=== PATIENT | female | born 1980 | race African-American/Black ===

== ENCOUNTER → 2016-07-26 | Outpatient (CLI) | payer OTHER ==
--- NOTE | 2016-07-27 20:38 | US ---
Examination: Greater than 14 weeks transabdominal ultrasound with color Doppler and M-mode evaluatio n. HISTORY: FINDINGS: LMP is 03/10/2016 EVALUATION: Posterior placenta with a breech lie and grade 1. Visually amniotic fluid is withi n normal limits. Three-vessel cord is noted. Ventricles are within normal limits. Nuchal fold thickness is 2.1 mm. Four chamber heart is noted. Heart rate is 156 beats per minute. BIOMETRY AND GESTATIONAL AGE: Biparietal diameter 4.4 cm. The abdominal circumference measures 14.2 cm. The femoral length is 3.0 cm with head circumference of 16.6 cm. Gestational age is 19 weeks and 2 days. The expected date of delivery is approximately 12/18/2016. Fetus weight is 291 grams. Overall the fetus is within the 28th percentile. Other detail anatomy summarized into PACs sheet after the images. No anatomical anomalies. IMPRESSION: Single active IU with breech fetus. Posterior placenta with grade 1, no placenta previa. N o anomalies are seen. Amniotic fluid appears within normal limits.
== END ==
LOC: MW.US 13:53
PROVIDERS: ATTEND Advanced Practice Midwife
DX: Z34.81 Encounter for supervision of other normal pregnancy, first trimester (principal); Z3A.19 19 weeks gestation of pregnancy
CPT/HCPCS: 76805; 76805-26

== ENCOUNTER → 2016-08-30 | Outpatient (CLI) | payer OTHER | END | disposition home or self-care (01) | LOC: MW.CHOBGYN 14:19 | PROVIDERS: ATTEND Advanced Practice Midwife | DX: Z34.90 Encounter for supervision of normal pregnancy, unspecified, unspecified trimester (principal) | CPT/HCPCS: 36415; 82950 ==

== ENCOUNTER 2016-12-13 06:16 | Inpatient (IN) | payer SELFPAY ==
[~2016-12-13 06:16] MED LIST: Citric Acid/Sodium Citrate Solution 30 ML Cup PO SCH; Sodium Chloride 0.9% 10 ML Syringe FLUSH PRN; Sodium Chloride 0.9% 2.5 ML Syringe FLUSH PRN
[2016-12-13] MEDS ORDERED: ceFAZolin 2 GM in Premix Bag 1 BAG IV ONE (06:22)
[2016-12-13] MEDS ORDERED: Sodium Chloride 0.9% 10 ML Syringe FLUSH PRN (06:22)
[2016-12-13] MEDS ORDERED: Sodium Chloride 0.9% 2.5 ML Syringe FLUSH PRN (06:22)
[2016-12-13] MEDS ORDERED: Citric Acid/Sodium Citrate Solution 30 ML Cup PO SCH (06:30)
[2016-12-13] MEDS ORDERED: Lactated Ringers 1,000 ML IV SCH ×2 (06:30→09:00)
[2016-12-13] MEDS ORDERED: Morphine PF 10 MG/10 ML SDV ONE (07:22)
[2016-12-13] MEDS ORDERED: Oxytocin/Lactated Ringers 30 UNIT/500 ML BAG ONE (07:25)
[2016-12-13] MEDS: Lactated Ringers 1,000 ML IV SCH ×2 (07:29→07:52)
[2016-12-13] MEDS ORDERED: Octyl 2-Cyanoacrylate 1 Tube ONE (07:43)
--- NOTE | 2016-12-13 07:58 | PCM.LDHP ---
L&D History of Present Illness - General Date of Service: 12/13/16 Admit Problem/Dx: Patient Status Order with Admit Dx/Problem 12/12/16 08:50 Patient Status [ADT] Routine 12/13/16 06:22 Patient Status [ADT] Routine Admission Diagnosis/Problem Admission Diagnosis/Problem Source of Information: Patient History Limitations: Reports: No Limitations - History of Present Illness Improves with: Reports: None Worsens with: Reports: None Associated Symptoms: Reports: N - Related Data Allergies/Adverse Reactions: Allergies Allergy/AdvReac Type Severity Reaction Status Date / Time No Known Allergies Allergy Verified 10/25/15 14:32 Home Medications: Home Meds . 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 Musculoskeletal History: Reports: None Hematologic History: Reports: Blood Transfusion(s) Other Hematologic History: states she had blood transfusion with first c /section - Past Surgical History Head Surgeries/Procedures: Reports: None HEENT Surgical History: Reports: None GI Surgical History: Reports: Appendectomy Female Surgical History: Reports: Section Social & Family History - Family History HEENT: Reports: Cataract - Tobacco Use Smoking Status *Q: Never Smoker Second Hand Smoke Exposure: No - Caffeine Use Caffeine Use: Reports: None - Alcohol Use Days Per Week of Alcohol Use: 0 - Recreational Drug Use Recreational Drug Use: No H&P Review of Systems - Review of Systems: Review Of Systems: See Below General: Reports: No Symptoms HEENT: Reports: No Symptoms Pulmonary: Reports: No Symptoms Cardiovascular: Reports: No Symptoms Gastrointestinal: Reports: No Symptoms Genitourinary: Reports: No Symptoms Musculoskeletal: Reports: No Symptoms Skin: Reports: No Symptoms Psychiatric: Reports: No Symptoms Neurological: Reports: No Symptoms Hematologic/Lymphatic: Reports: No Symptoms Immunologic: Reports: No Symptoms L&D Exam - Exam Exam: See Below - Vital Signs Weight: 79.832 kg - OB Specific Fundal Height In cm: 38 Contraction Intensity: Mild Heart Tones: Present Presentation: Vertex - Tolentino Score Tolentino Score Cervix Position: Midposition Tolentino Score Consistency: Firm Tolentino Score Effacement: 31-50% Tolentino Score Dilation: Closed Tolentino Score Infant's Station: -3 Tolentino Score Total: 2 - Exam General: Alert, Oriented HEENT: PERRLA, Conjunctiva Clear, EACs Clear, EOMI, Hearing Intact, Mucosa Moist & [place], Nares Patent, Normal Nasal Septum, Posterior Pharynx Clear, TMs Clear Neck: Supple, Trachea Midline Lungs: Clear to Auscultation, Normal Respiratory Effort Cardiovascular: Regular Rate, Regular Rhythm GI/Abdominal Exam: Normal Bowel Sounds, Soft, Non-Tender, No Organomegaly, No Distention, No Abnormal Bruit, No Mass, Pelvis Stable Rectal Exam: Normal Exam, Normal Rectal Tone Genitourinary: Normal external exam, Normal bimanual exam, Normal speculum exam Back Exam: Normal Inspection, Full Range of Motion Extremities: Normal Inspection, Normal Range of Motion, Non-Tender, No Pedal Edema, Normal Capillary Refill Skin: Warm, Dry, Intact Neurological: Cranial Nerves Intact, Reflexes Equal Bilateral Psychiatric: Alert, Normal Affect, Normal Mood - Patient Data Lab Results Last 24 hrs: Laboratory Results - last 24 hr 12/12/16 12/12/16 Range/Units 18:52 18:52 WBC 5.49 (4.0-11.0) K/uL RBC 3.41 L (4.30-5.90) M/uL Hgb 10.1 L (12.0-16.0) g/dL Hct 30.0 L (36.0-46.0) % MCV 88.0 (80.0-98.0) fL MCH 29.6 (27.0-32.0) pg MCHC 33.7 (31.0-37.0) g/dL RDW Std Deviation 48.1 (28.0-62.0) fl RDW Coeff of Whitley 15 (11.0-15.0) % Plt Count 234 (150-400) K/uL MPV 9.60 (7.40-12.00) fL Nucleated RBC % 0.0 /100WBC Nucleated RBCs # 0 K/uL Blood Type O POSITIVE Antibody Screen NEGATIVE Result Diagrams: 12/12/16 18:52 Problem List Initiated/Reviewed/Updated: Yes Orders Last 24hrs: Active Orders 24 hr Category Date Time Status Patient Status [ADT] Routine ADT 12/12/16 08:50 Active Patient Status [ADT] Routine ADT 12/13/16 06:22 Active Non Stress Test [RC] PER UNIT ROUTINE Care 12/12/16 08:50 Active Non Stress Test [RC] PER UNIT ROUTINE Care 12/13/16 06:22 Active Notify Provider Vital Signs [RC] PRN Care 12/13/16 06:23 Active Procedure Site Prep Instruct [RC] ASDIRECTED Care 12/12/16 08:50 Active Procedure Site Prep Instruct [RC] ASDIRECTED Care 12/13/16 06:22 Active Up ad Kami [RC] ASDIRECTED Care 12/12/16 08:50 Active Up ad Kami [RC] ASDIRECTED Care 12/13/16 06:22 Active Verify Patient Consent Obtain [RC] ASDIRECTED Care 12/12/16 08:50 Active Verify Patient Consent Obtain [RC] ASDIRECTED Care 12/13/16 06:22 Active Vital Signs [RC] PER UNIT ROUTINE Care 12/12/16 08:50 Active Vital Signs [RC] PER UNIT ROUTINE Care 12/13/16 06:22 Active Nothing Per Oral Diet [DIET] Diet 12/13/16 Breakfast Active Citric Acid/Sodium Citrate [Bicitra Solution] Med 12/12/16 09:00 Active 30 ml PO .ONCE Citric Acid/Sodium Citrate [Bicitra Solution] Med 12/13/16 06:30 Active 30 ml PO .ONCE Lactated Ringers [Ringers, Lactated] 1,000 ml Med 12/12/16 09:00 Active IV .BOLUS Lactated Ringers [Ringers, Lactated] 1,000 ml Med 12/13/16 06:30 Active IV .BOLUS Sodium Chloride 0.9% [Saline Flush] Med 12/12/16 08:50 Active 10 ml FLUSH ASDIRECTED PRN Sodium Chloride 0.9% [Saline Flush] Med 12/13/16 06:22 Active 10 ml FLUSH ASDIRECTED PRN Sodium Chloride 0.9% [Saline Flush] Med 12/12/16 08:50 Active 2.5 ml FLUSH ASDIRECTED PRN Sodium Chloride 0.9% [Saline Flush] Med 12/13/16 06:22 Active 2.5 ml FLUSH ASDIRECTED PRN Peripheral IV Insertion Adult [OM.PC] Routine Oth 12/12/16 08:50 Ordered Peripheral IV Insertion Adult [OM.PC] Routine Oth 12/13/16 06:22 Ordered Schedule Procedure [COMM] Per Unit Routine Oth 12/12/16 08:50 Ordered Schedule Procedure [COMM] Per Unit Routine Oth 12/13/16 06:22 Ordered Resuscitation Status Routine Resus Stat 12/12/16 08:50 Ordered Medication Orders Citric Acid/Sodium Citrate (Bicitra Solution) 30 ml PO .ONCE MUMTAZ Last Admin: 12/13/16 07:52 Dose: 30 ml Citric Acid/Sodium Citrate (Bicitra Solution) 30 ml PO .ONCE MUMTAZ Lactated Ringer's (Ringers, Lactated) 1,000 mls @ 500 mls/hr IV .BOLUS MUMTAZ Last Admin: 12/13/16 07:52 Dose: 999 mls/hr Infusion: 12/13/16 07:52 Dose: 999 mls/hr Admin: 12/13/16 07:29 Dose: 999 mls/hr Lactated Ringer's (Ringers, Lactated) 1,000 mls @ 500 mls/hr IV .BOLUS MUMTAZ Sodium Chloride (Saline Flush) 10 ml FLUSH ASDIRECTED PRN PRN Reason: Keep Vein Open Sodium Chloride (Saline Flush) 2.5 ml FLUSH ASDIRECTED PRN PRN Reason: Keep Vein Open Sodium Chloride (Saline Flush) 10 ml FLUSH ASDIRECTED PRN PRN Reason: Keep Vein Open Sodium Chloride (Saline Flush) 2.5 ml FLUSH ASDIRECTED PRN PRN Reason: Keep Vein Open Assessment/Plan Comment:: Term for elective repeat C/Section.
[2016-12-13] MEDS ORDERED: Phenylephrine/Normal Saline 100 MCG/ML 10 ML Syringe ONE (08:13)
--- NOTE | 2016-12-13 08:14 | PCM.PREANE ---
Preanesthetic Assessment - Procedure Proposed Procedure: , second - Anesthesia/Transfusion/Family Hx Anesthesia History: Prior Anesthesia Without Reaction Family History of Anesthesia Reaction: No Transfusion History: Prior Transfusion Without Reaction Intubation History: Unknown Additional History: Seems to understand Vietnamese in limited fashion. Unable to articulate answers to questions. Written hx/ OB chart is reference. - Review of Systems General: Other () Pulmonary: No Symptoms Cardiovascular: No Symptoms Gastrointestinal: Other (GERD of ) Neurological: No Symptoms Other: Reports: Anxiety - Physical Assessment NPO Status Date: 12/12/16 NPO Status Time: 23:00 Height: 5 ft 3.6 in Weight: 176 lb ASA Class: 2 Mental Status: Alert & Oriented x3 Airway Class: Mallampati = 1 Dentition: Reports: Normal Dentition Thyro-Mental Finger Breadths: 3 Mouth Opening Finger Breadths: 3 ROM/Head Extension: Full Lungs: Clear to Auscultation, Normal Respiratory Effort Cardiovascular: Irregular Rhythm (skipping occasionally), Murmurs (mild holosystolic murmur LSB) - Lab Values: Laboratory Last Values WBC 5.49 K/uL (4.0-11.0) 12/12/16 18:52 RBC 3.41 M/uL (4.30-5.90) L 12/12/16 18:52 Hgb 10.1 g/dL (12.0-16.0) L 12/12/16 18:52 Hct 30.0 % (36.0-46.0) L 12/12/16 18:52 MCV 88.0 fL (80.0-98.0) 12/12/16 18:52 MCH 29.6 pg (27.0-32.0) 12/12/16 18:52 MCHC 33.7 g/dL (31.0-37.0) 12/12/16 18:52 RDW Std Deviation 48.1 fl (28.0-62.0) 12/12/16 18:52 RDW Coeff of Whitley 15 % (11.0-15.0) 12/12/16 18:52 Plt Count 234 K/uL (150-400) 12/12/16 18:52 MPV 9.60 fL (7.40-12.00) 12/12/16 18:52 Nucleated RBC % 0.0 /100WBC 12/12/16 18:52 Nucleated RBCs # 0 K/uL 12/12/16 18:52 Blood Type O POSITIVE 12/12/16 18:52 Antibody Screen NEGATIVE 12/12/16 18:52 - Allergies Allergies/Adverse Reactions: Allergies Allergy/AdvReac Type Severity Reaction Status Date / Time No Known Allergies Allergy Verified 10/25/15 14:32 - Blood Blood Available: Yes Product(s) Available: PRBC (T and S) - Anesthesia Plan Pre-Op Medication Ordered: Antacids - Acknowledgements Anesthesia Type Planned: Spinal Pt an Appropriate Candidate for the Planned Anesthesia: Yes Alternatives and Risks of Anesthesia Discussed w Pt/Guardian: Yes Pt/Guardian Understands and Agrees with Anesthesia Plan: Yes Additional Comments: prior section elswhere year ago. Seems to understand plan and agrees. 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 [No Known Home Meds] 07/31/14 [History] - CURRENT (IN HOUSE) MEDS Current Meds: Current Medications Citric Acid/Sodium Citrate (Bicitra Solution) 30 ml PO .ONCE MUMTAZ Last Admin: 12/13/16 07:52 Dose: 30 ml Citric Acid/Sodium Citrate (Bicitra Solution) 30 ml PO .ONCE MUMTAZ Lactated Ringer's (Ringers, Lactated) 1,000 mls @ 500 mls/hr IV .BOLUS MUMTAZ Last Admin: 12/13/16 07:52 Dose: 999 mls/hr Lactated Ringer's (Ringers, Lactated) 1,000 mls @ 500 mls/hr IV .BOLUS MUMTAZ Sodium Chloride (Saline Flush) 10 ml FLUSH ASDIRECTED PRN PRN Reason: Keep Vein Open Sodium Chloride (Saline Flush) 2.5 ml FLUSH ASDIRECTED PRN PRN Reason: Keep Vein Open Sodium Chloride (Saline Flush) 10 ml FLUSH ASDIRECTED PRN PRN Reason: Keep Vein Open Sodium Chloride (Saline Flush) 2.5 ml FLUSH ASDIRECTED PRN PRN Reason: Keep Vein Open Discontinued Medications Cefazolin Sodium/Dextrose 2 gm (/ Premix) 50 mls @ 100 mls/hr IV ONETIME ONE Stop: 12/13/16 06:51 Oxytocin/Lactated Ringer's (Pitocin In Lr 30 Units/500 Ml) Confirm Administered Dose 30 unit in 500 mls @ as directed .ROUTE .STK-MED ONE Stop: 12/13/16 07:26 Morphine Sulfate (Duramorph Pf) Confirm Administered Dose 10 mg .ROUTE .STK-MED ONE Stop: 12/13/16 07:23 Octyl Cyanoacrylate (Dermabond Advance) Confirm Administered Dose 1 applic .ROUTE .STK-MED ONE Stop: 12/13/16 07:44
[2016-12-13] MEDS ORDERED: ePHEDrine 50 MG/ML SDV ONE (08:18)
[2016-12-13] MEDS ORDERED: Ondansetron 4 MG/2 ML SDV ONE (08:44)
[2016-12-13] MEDS ORDERED: Ibuprofen 800 MG Tab PO PRN (08:55)
[2016-12-13] MEDS ORDERED: Bisacodyl 10 MG Supp RECTAL PRN ×2 (08:55→08:57)
[2016-12-13] MEDS ORDERED: Docusate Sodium 100 MG Cap PO PRN (08:55)
[2016-12-13] MEDS ORDERED: Lanolin 100% Cream 7 GM Tube TOP PRN ×2 (08:55→08:57)
[2016-12-13] MEDS ORDERED: Acetaminophen 500 MG Tab PO PRN ×2 (08:55)
[2016-12-13] MEDS ORDERED: Witch Hazel Medicated Pads 40/Jar TOP PRN (08:55)
[2016-12-13] MEDS ORDERED: Benzocaine/Menthol 20%-0.5% Spray 78 GM Cannister TOP PRN (08:55)
[2016-12-13] MEDS ORDERED: Ibuprofen 400 MG Tab PO PRN (08:55)
[2016-12-13] MEDS ORDERED: oxyCODONE 5 MG Tab PO PRN (08:55)
[2016-12-13] MEDS ORDERED: Acetaminophen/oxyCODONE 325-5 MG Tab PO PRN (08:57)
[2016-12-13] MEDS ORDERED: diphenhydrAMINE 50 MG/ML SDV IVPUSH PRN (08:57)
[2016-12-13] MEDS ORDERED: Ondansetron 4 MG/2 ML SDV IV PRN (08:57)
--- NOTE | 2016-12-13 09:03 | PCM.OPNOTE ---
- General Post-Op/Procedure Note Date of Surgery/Procedure: 12/13/16 Operative Procedure(s): Repeat C/Section Pre Op Diagnosis: Tem previous C/section X2 Post-Op Diagnosis: Same Anesthesia Technique: Spinal Primary Surgeon: Jose Sorenson Disability Case Manager: Olivia Valdivia in mLs: 600 Complications: None Condition: Good
[2016-12-13] MEDS: Ketorolac 30 MG/ML SDV IVPUSH SCH ×3 (09:30→21:49)
--- NOTE | 2016-12-13 09:43 | OR ---
SURGEON: Jose Sorenson MD DATE OF PROCEDURE: PREOPERATIVE DIAGNOSIS: Term , previous section x2. POSTOPERATIVE DIAGNOSIS: Term , previous section x2. OPERATION: Repeat low-transverse section. SPECIAL WARFARE OPERATOR: DEWAYNE Brown. ANESTHESIA: Spinal by Blanca Oliver and Dr. White. ESTIMATED BLOOD LOSS: 600 mL. COMPLICATIONS: None. FINDINGS: Viable fetus, female, score is 8 and 9. Weight is not available at this time. INDICATION: The patient is term, followed in our clinic primarily by our nurse cell biologist, and she has had 2 previous sections. She is admitted for elective repeat section. DESCRIPTION OF PROCEDURE: The patient was brought to the OR and properly identified. After adequate level of spinal anesthesia with a Gordillo catheter in the bladder, a low transverse Pfannenstiel skin incision was done. The Vineet's fascia and rectus fascia were opened in the direction of the incision. The 2 recti muscles were and peritoneal cavity was entered. A low-transverse uterine incision was done and extended manually. Hand, fetus were delivered. It was in vertex position and handed to the nurse resuscitator who was present at the time of the delivery. The fetus cried immediately. The score later on reported to be 8 and 9. The weight is not available at this time. The placenta delivered spontaneous, complete, and intact. Repair of the lower uterine segment was done with 2-0 Vicryl continuous interlocking in 2 layers. The peritoneal cavity was evacuated completely from all blood and blood clot, and closed with 3-0 Vicryl continuous. The rectus fascia was closed with #1 PDS double strand continuous, the Vineet's fascia with 3-0 Vicryl continuous, and the skin with 5-0 monofilamentous in a subcuticular fashion and Dermabond. Instrument and sponge counts were correct. The patient tolerated the procedure well and went to the recovery room in a stable general condition. INOCENCIO / KWAKU /[id number]
--- NOTE | 2016-12-13 09:52 | PCM.POSTAN ---
POST ANESTHESIA ASSESSMENT - MENTAL STATUS Mental Status: Alert, Oriented - RESPIRATORY Respiratory Status: Respiratory Rate WNL, Airway Patent, O2 Saturation Stable - CARDIOVASCULAR CV Status: Pulse Rate WNL, Blood Pressure Stable - GASTROINTESTINAL GI Status: No Symptoms - POST OP HYDRATION Hydration Status: Adequate & Stable
[2016-12-13] MEDS: Docusate Sodium 100 MG Cap PO SCH (21:47)
[2016-12-14] MEDS: Ketorolac 30 MG/ML SDV IVPUSH SCH ×2 (03:29→08:40)
--- NOTE | 2016-12-14 05:34 | PCM48HPAN ---
Post Anesthesia Note - EVALUATION WITHIN 48HRS OF ANESTHETIC Vital Signs in Normal Range: Yes Patient Participated in Evaluation: Yes Respiratory Function Stable: Yes Airway Patent: Yes Cardiovascular Function Stable: Yes Hydration Status Stable: Yes Pain Control Satisfactory: Yes Nausea and Vomiting Control Satisfactory: Yes Mental Status Recovered: Yes
[2016-12-14] MEDS: Acetaminophen/oxyCODONE 325-5 MG Tab PO PRN ×3 (08:39→22:04)
[2016-12-14] MEDS: Docusate Sodium 100 MG Cap PO SCH (08:39)
--- NOTE | 2016-12-14 10:53 | PCM.PNPP ---
- General Info Date of Service: 12/14/16 Functional Status: Reports: Pain Controlled - Review of Systems General: Reports: No Symptoms HEENT: Reports: No Symptoms Pulmonary: Reports: No Symptoms Cardiovascular: Reports: No Symptoms Gastrointestinal: Reports: No Symptoms Genitourinary: Reports: No Symptoms Musculoskeletal: Reports: No Symptoms Skin: Reports: No Symptoms Neurological: Reports: No Symptoms Psychiatric: Reports: No Symptoms - General Info Date of Service: 12/14/16 - Patient Data Vital Signs - Most Recent: Last Vital Signs Temp 36.3 C 12/14/16 04:00 Pulse 86 12/14/16 06:00 Resp 16 12/14/16 06:00 BP 127/83 12/13/16 20:00 Pulse Ox 98 12/14/16 06:00 Weight - Most Recent: 79.832 kg I&O - Last 24 Hours: Intake & Output 12/13/16 12/14/16 12/14/16 22:59 06:59 14:59 Intake Total 2160 Output Total 2700 1800 Balance -540 -1800 Lab Results - Last 24 Hours: Laboratory Results - last 24 hr 12/14/16 Range/Units 05:47 Hgb 8.8 L (12.0-16.0) g/dL Hct 26.5 L (36.0-46.0) % Med Orders - Current: Current Medications Bisacodyl (Dulcolax) 10 mg RECTAL .ONCE PRN PRN Reason: Constipation Citric Acid/Sodium Citrate (Bicitra Solution) 30 ml PO .ONCE MUMTAZ Last Admin: 12/13/16 07:52 Dose: 30 ml Citric Acid/Sodium Citrate (Bicitra Solution) 30 ml PO .ONCE MUMTAZ Diphenhydramine HCl (Benadryl) 25 mg IVPUSH Q6H PRN PRN Reason: Itching or Nausea Last Admin: 12/13/16 13:28 Dose: 25 mg Docusate Sodium (Colace) 100 mg PO BID MUMTAZ Last Admin: 12/14/16 08:39 Dose: 100 mg Emollient Ointment (Lansinoh Hpa) 0 gm TOP ASDIRECTED PRN PRN Reason: Sore Nipples Lactated Ringer's (Ringers, Lactated) 1,000 mls @ 500 mls/hr IV .BOLUS MUMTAZ Last Admin: 12/13/16 07:52 Dose: 999 mls/hr Lactated Ringer's (Ringers, Lactated) 1,000 mls @ 500 mls/hr IV .BOLUS MUMTAZ Lactated Ringer's (Ringers, Lactated) 1,000 mls @ 125 mls/hr IV ASDIRECTED MUMTAZ Last Admin: 12/13/16 13:06 Dose: 125 mls/hr Ibuprofen (Motrin) 800 mg PO Q8H PRN PRN Reason: mild pain or fever Ondansetron HCl (Zofran) 4 mg IV Q4H PRN PRN Reason: Nausea/Vomiting Oxycodone/Acetaminophen (Percocet 325-5 Mg) 1 tab PO Q4H PRN PRN Reason: Pain (moderate 4-6) Oxycodone/Acetaminophen (Percocet 325-5 Mg) 2 tab PO Q4H PRN PRN Reason: Pain (moderate 4-6) Last Admin: 12/14/16 08:39 Dose: 2 tab Sodium Chloride (Saline Flush) 10 ml FLUSH ASDIRECTED PRN PRN Reason: Keep Vein Open Sodium Chloride (Saline Flush) 2.5 ml FLUSH ASDIRECTED PRN PRN Reason: Keep Vein Open Sodium Chloride (Saline Flush) 10 ml FLUSH ASDIRECTED PRN PRN Reason: Keep Vein Open Sodium Chloride (Saline Flush) 2.5 ml FLUSH ASDIRECTED PRN PRN Reason: Keep Vein Open Discontinued Medications Ephedrine Sulfate (Ephedrine Sulfate) Confirm Administered Dose 50 mg .ROUTE .STK-MED ONE Stop: 12/13/16 08:19 Cefazolin Sodium/Dextrose 2 gm (/ Premix) 50 mls @ 100 mls/hr IV ONETIME ONE Stop: 12/13/16 06:51 Oxytocin/Lactated Ringer's (Pitocin In Lr 30 Units/500 Ml) Confirm Administered Dose 30 unit in 500 mls @ as directed .ROUTE .STK-MED ONE Stop: 12/13/16 07:26 Ketorolac Tromethamine (Toradol) 30 mg IVPUSH Q6H PENDING SALE TO [facility] Stop: 12/14/16 09:01 Last Admin: 12/14/16 08:40 Dose: 30 mg Morphine Sulfate (Duramorph Pf) Confirm Administered Dose 10 mg .ROUTE .STK-MED ONE Stop: 12/13/16 07:23 Octyl Cyanoacrylate (Dermabond Advance) Confirm Administered Dose 1 applic .ROUTE .STK-MED ONE Stop: 12/13/16 07:44 Ondansetron HCl (Zofran) Confirm Administered Dose 4 mg .ROUTE .STK-MED ONE Stop: 12/13/16 08:45 Phenylephrine HCl (Phenylephrine In Ns 100 Mcg/Ml) Confirm Administered Dose 1 mg .ROUTE .STK-MED ONE Stop: 12/13/16 08:14 - Infant Interaction Disposition, : [place] in Room with Family Interaction: Holding Infant Feeding: Attempted ; Nursed Fair/Poor Support Person: - Recovery Exam Fundal Tone: Firm Fundal Level: At Umbilicus Fundal Placement: Midline Lochia Amount: Scant, Small Lochia Color: Rubra/Red Perineum Description: Intact, Minimal Bruising/Swelling Bladder Status: Indwelling Catheter in Place Urinary Elimination: Indwelling Catheter - Exam General: Alert, Oriented HEENT: Pupils Equal Neck: Supple Lungs: Clear to Auscultation, Normal Respiratory Effort Cardiovascular: Regular Rate, Regular Rhythm GI/Abdominal Exam: Normal Bowel Sounds, Soft, Non-Tender, No Organomegaly, No Distention, No Abnormal Bruit, No Mass, Pelvis Stable Extremities: Normal Inspection, Normal Range of Motion, Non-Tender, No Pedal Edema, Normal Capillary Refill Skin: Warm, Dry, Intact Wound/Incisions: Healing Well Neurological: No New Focal Deficit Psy/Mental Status: Alert, Normal Affect, Normal Mood - Problem List Review Problem List Initiated/Reviewed/Updated: Yes - My Orders Last 24 Hours: My Active Orders 12/13/16 Lunch Regular Diet [DIET] - Assessment Assessment:: Status post repeat section postoperative day #1 patient doing well incision is clean and dry. Planning to send home - Plan Plan:: Term for elective repeat C/Section.
[2016-12-14] MEDS: Ibuprofen 800 MG Tab PO PRN (14:17)
[2016-12-15] MEDS: Docusate Sodium 100 MG Cap PO SCH ×2 (07:31→08:36)
[2016-12-15] MEDS: Ibuprofen 800 MG Tab PO PRN (07:32)
--- NOTE | 2016-12-15 09:40 | PCM.DCSUM1 ---
Discharge Summary - Discharge Data Discharge Date: 12/15/16 Discharge Disposition: Home, Self-Care 01 Condition: Good - Patient Summary/Data Operative Procedure(s) Performed: Repeat C/Section - Patient Instructions Diet: Usual Diet as Tolerated Activity: As Tolerated Driving: Do Not Drive Showering/Bathing: September Shower Notify Provider of: Fever, Nausea and/or Vomiting - Discharge Plan Home Medications: Home Meds . [No Known Home Meds] 07/31/14 [History] Referrals: [facility] [Outside] Daina Keyes CNM [Mid-] - (1 week- December 20 @ 9:30am w/ Daina Keyes week- January 24 @ 9:30am w/ Daina Keyes ) - General Info Date of Service: 12/15/16 Functional Status: Reports: Pain Controlled - Review of Systems General: Reports: No Symptoms HEENT: Reports: No Symptoms Pulmonary: Reports: No Symptoms Cardiovascular: Reports: No Symptoms Gastrointestinal: Reports: No Symptoms Genitourinary: Reports: No Symptoms Musculoskeletal: Reports: No Symptoms Skin: Reports: No Symptoms Neurological: Reports: No Symptoms Psychiatric: Reports: No Symptoms - Patient Data Vitals - Most Recent: Last Vital Signs Temp 36.6 C 12/15/16 08:00 Pulse 84 12/15/16 08:00 Resp 18 12/15/16 08:00 BP 135/75 12/15/16 08:00 Pulse Ox 98 12/15/16 08:00 Weight - Most Recent: 79.832 kg Med Orders - Current: Current Medications Bisacodyl (Dulcolax) 10 mg RECTAL .ONCE PRN PRN Reason: Constipation Citric Acid/Sodium Citrate (Bicitra Solution) 30 ml PO .ONCE MUMTAZ Last Admin: 12/13/16 07:52 Dose: 30 ml Citric Acid/Sodium Citrate (Bicitra Solution) 30 ml PO .ONCE MUMTAZ Diphenhydramine HCl (Benadryl) 25 mg IVPUSH Q6H PRN PRN Reason: Itching or Nausea Last Admin: 12/13/16 13:28 Dose: 25 mg Docusate Sodium (Colace) 100 mg PO BID MUMTAZ Last Admin: 12/15/16 08:36 Dose: 100 mg Emollient Ointment (Lansinoh Hpa) 0 gm TOP ASDIRECTED PRN PRN Reason: Sore Nipples Lactated Ringer's (Ringers, Lactated) 1,000 mls @ 500 mls/hr IV .BOLUS MUMTAZ Last Admin: 12/13/16 07:52 Dose: 999 mls/hr Lactated Ringer's (Ringers, Lactated) 1,000 mls @ 500 mls/hr IV .BOLUS MUMTAZ Lactated Ringer's (Ringers, Lactated) 1,000 mls @ 125 mls/hr IV ASDIRECTED MUMTAZ Last Admin: 12/13/16 13:06 Dose: 125 mls/hr Ibuprofen (Motrin) 800 mg PO Q8H PRN PRN Reason: mild pain or fever Last Admin: 12/15/16 07:32 Dose: 800 mg Ondansetron HCl (Zofran) 4 mg IV Q4H PRN PRN Reason: Nausea/Vomiting Oxycodone/Acetaminophen (Percocet 325-5 Mg) 1 tab PO Q4H PRN PRN Reason: Pain (moderate 4-6) Oxycodone/Acetaminophen (Percocet 325-5 Mg) 2 tab PO Q4H PRN PRN Reason: Pain (moderate 4-6) Last Admin: 12/14/16 22:04 Dose: 2 tab Sodium Chloride (Saline Flush) 10 ml FLUSH ASDIRECTED PRN PRN Reason: Keep Vein Open Sodium Chloride (Saline Flush) 2.5 ml FLUSH ASDIRECTED PRN PRN Reason: Keep Vein Open Sodium Chloride (Saline Flush) 10 ml FLUSH ASDIRECTED PRN PRN Reason: Keep Vein Open Sodium Chloride (Saline Flush) 2.5 ml FLUSH ASDIRECTED PRN PRN Reason: Keep Vein Open Discontinued Medications Ephedrine Sulfate (Ephedrine Sulfate) Confirm Administered Dose 50 mg .ROUTE .STK-MED ONE Stop: 12/13/16 08:19 Cefazolin Sodium/Dextrose 2 gm (/ Premix) 50 mls @ 100 mls/hr IV ONETIME ONE Stop: 12/13/16 06:51 Oxytocin/Lactated Ringer's (Pitocin In Lr 30 Units/500 Ml) Confirm Administered Dose 30 unit in 500 mls @ as directed .ROUTE .STK-MED ONE Stop: 12/13/16 07:26 Ketorolac Tromethamine (Toradol) 30 mg IVPUSH Q6H MUMTAZ Stop: 12/14/16 09:01 Last Admin: 12/14/16 08:40 Dose: 30 mg Morphine Sulfate (Duramorph Pf) Confirm Administered Dose 10 mg .ROUTE .STK-MED ONE Stop: 12/13/16 07:23 Octyl Cyanoacrylate (Dermabond Advance) Confirm Administered Dose 1 applic .ROUTE .STK-MED ONE Stop: 12/13/16 07:44 Ondansetron HCl (Zofran) Confirm Administered Dose 4 mg .ROUTE .STK-MED ONE Stop: 12/13/16 08:45 Phenylephrine HCl (Phenylephrine In Ns 100 Mcg/Ml) Confirm Administered Dose 1 mg .ROUTE .STK-MED ONE Stop: 12/13/16 08:14 - Exam General: Reports: Alert, Oriented HEENT: Reports: Pupils Equal, Pupils Reactive, EOMI, Mucous Membr. Moist/[place] Neck: Reports: Supple Lungs: Reports: Clear to Auscultation, Normal Respiratory Effort Cardiovascular: Reports: Regular Rate, Regular Rhythm GI/Abdominal Exam: Normal Bowel Sounds, Soft, Non-Tender, No Organomegaly, No Distention, No Abnormal Bruit, No Mass, Pelvis Stable (Female) Exam: Normal External Exam, Normal Speculum Exam, Normal Bimanual Exam Rectal (Female) Exam: Normal Exam, Normal Rectal Tone Back Exam: Reports: Normal Inspection, Full Range of Motion Extremities: Normal Inspection, Normal Range of Motion, Non-Tender, No Pedal Edema, Normal Capillary Refill Skin: Reports: Warm, Dry, Intact Wound/Incisions: Reports: Healing Well Neurological: Reports: No New Focal Deficit Psy/Mental Status: Reports: Alert, Normal Affect, Normal Mood *Q Meaningful Use (DIS) - VTE *Q VTE Criteria *Q: - Stroke *Q Stroke Criteria *Q: - AMI *Q AMI Criteria *Q:
[2016-12-15 14:10] VITALS: BP 130/74
== END 2016-12-15 13:35 | disposition home or self-care (01) | DRG 766 ==
LOC: MW.OB 06:16
PROVIDERS: ADMIT Obstetrics & Gynecology; ATTEND Obstetrics & Gynecology
PROC: 10D00Z1 Extraction of Products of Conception, Low, Open Approach (ICD-10-PCS; principal; 2016-12-13)
DX: O34.211 Maternal care for low transverse scar from previous cesarean delivery (principal); Z3A.39 39 weeks gestation of pregnancy; Z37.0 Single live birth
CPT/HCPCS: 01961; 36415; 51703; 85014; 85018; 85027; 86850; 86900; 86901; A9270-GY; J1200; J1885; J2270; J2405; J7120

== ENCOUNTER 2018-07-08 05:46 | Emergency (ER) | payer BC ==
--- NOTE | 2018-07-08 06:02 | EDM.PDOC ---
ED HPI GENERAL MEDICAL PROBLEM - General Chief Complaint: Respiratory Problem Stated Complaint: PERSISTENT COUGH Time Seen by Provider: 07/08/18 06:02 Source of Information: Reports: Patient - History of Present Illness INITIAL COMMENTS - FREE TEXT/NARRATIVE: HISTORY AND PHYSICAL: History of present illness: [Patient presents with cough for 2 days nonproductive, she does have sinus pain and tenderness as well as dysuria she states she had a home positive test LMP was June 03, 2018. No fever nausea vomiting chills sweats no chest pain shortness breath dizziness or palpitation no bowel symptoms ] Review of systems: As per history of present illness and below otherwise all systems reviewed and negative. Past medical history: As per history of present illness and as reviewed below otherwise noncontributory. Surgical history: As per history of present illness and as reviewed below otherwise noncontributory. Social history: No reported history of drug or alcohol abuse. Family history: As per history of present illness and as reviewed below otherwise noncontributory. Physical exam: HEENT: Atraumatic, normocephalic, pupils reactive, negative for conjunctival pallor or scleral icterus, mucous membranes moist, throat clear, neck supple, nontender, trachea midline. Sinus pain right greater than left supraorbital sinus oropharynx moderate erythema no exudates Lungs: Clear to auscultation, breath sounds equal bilaterally, chest nontender. Heart: S1S2, regular, negative for clicks, rubs, or JVD. Abdomen: Soft, nondistended, nontender. Negative for masses or hepatosplenomegaly. Negative for costovertebral tenderness. Pelvis: Stable nontender. Genitourinary: Deferred. Rectal: Deferred. Extremities: Atraumatic, negative for cords or calf pain. Neurovascular unremarkable. Neuro: Awake, alert, oriented. Cranial nerves II through XII unremarkable. Cerebellum unremarkable. Motor and sensory unremarkable throughout. Exam nonfocal. Diagnostics: [Strep influenza UA hCG ] Therapeutics: [Amoxicillin] Impression: [ sinusitis ] Possible UTI culture to follow Positive test Definitive disposition and diagnosis as appropriate pending reevaluation and review of above. head Pain Score (Numeric/FACES): 8 - Related Data Allergies Allergy/AdvReac Type Severity Reaction Status Date / Time No Known Allergies Allergy Verified 07/08/18 05:48 Home Meds: Home Meds . 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 Musculoskeletal History: Reports: None Neurological History: Reports: None Psychiatric History: Reports: None Endocrine/Metabolic History: Reports: None Hematologic History: Reports: Blood Transfusion(s) Other Hematologic History: states she had blood transfusion with first c /section Oncologic (Cancer) History: Reports: None Dermatologic History: Reports: None - Infectious Disease History Infectious Disease History: Reports: None - Past Surgical History Head Surgeries/Procedures: Reports: None HEENT Surgical History: Reports: None GI Surgical History: Reports: Appendectomy Female Surgical History: Reports: Section Social & Family History - Family History Family Medical History: Noncontributory HEENT: Reports: Cataract - Caffeine Use Caffeine Use: Reports: None ED ROS GENERAL - Review of Systems Review Of Systems: See Below ED EXAM, GENERAL - Physical Exam Exam: See Below Course - Vital Signs Last Recorded V/S: Last Vital Signs Temp 98.9 F 07/08/18 05:50 Pulse 99 07/08/18 05:50 Resp 18 07/08/18 05:50 BP 154/102 H 07/08/18 05:50 Pulse Ox 96 07/08/18 05:50 - Orders/Labs/Meds Orders: Active Orders 24 hr Category Date Time Status CULTURE STREP A CONFIRMATION [] Stat Lab 07/08/18 06:00 Results STREP SCRN A RAPID W CULT CONF [] Stat Lab 07/08/18 06:00 Results Labs: Laboratory Tests 07/08/18 07/08/18 Range/Units 06:12 06:12 Urine Color YELLOW Urine Appearance CLEAR Urine pH 6.0 (5.0-8.0) Ur Specific [place] <= 1.005 (1.001-1.035) Urine Protein NEGATIVE (NEGATIVE) mg/dL Urine Glucose (UA) NEGATIVE (NEGATIVE) mg/dL Urine Ketones NEGATIVE (NEGATIVE) mg/dL Urine Occult Blood LARGE H (NEGATIVE) Urine Nitrite NEGATIVE (NEGATIVE) Urine Bilirubin NEGATIVE (NEGATIVE) Urine Urobilinogen 0.2 (<2.0) EU/dL Ur Leukocyte Esterase NEGATIVE (NEGATIVE) Urine RBC 1-2 (0-2/HPF) Urine WBC 0-1 (0-5/HPF) Ur Epithelial Cells FEW (NONE-FEW) Urine Bacteria FEW (NEGATIVE) Urine HCG, Qual POSITIVE (NEGATIVE) Departure - Departure Time of Disposition: 06:43 Disposition: Home, Self-Care 01 Condition: Good Clinical Impression: , Dysuria, Sinusitis - Discharge Information Referrals: PCP,None [Primary Care Provider] - Forms: ED Department Discharge Additional Instructions: Medication as prescribed Return if symptoms persist or worsen or if new concerning symptoms develop Follow-up with primary care as needed Follow-up with OB provider, vitamins recommended [facility] [address] [place] [id number] [address] [id number] [facility] [address] [place] [address] The following information is given to patients seen in the emergency department who are being discharged to home. This information is to outline your options for follow-up care. We provide all patients seen in our emergency department with a follow-up referral. The need for follow-up, as well as the timing and circumstances, are variable depending upon the specifics of your emergency department visit. If you don't have a primary care physician on staff, we will provide you with a referral. We always advise you to contact your personal physician following an emergency department visit to inform them of the circumstance of the visit and for follow-up with them and/or the need for any referrals to a consulting specialist. The emergency department will also refer you to a specialist when appropriate. This referral assures that you have the opportunity for follow-up care with a specialist. All of these measure are taken in an effort to provide you with optimal care, which includes your follow-up. Under all circumstances we always encourage you to contact your private physician who remains a resource for coordinating your care. When calling for follow-up care, please make the office aware that this follow-up is from your recent emergency room visit. If for any reason you are refused follow-up, please contact the [facility] emergency department at and asked to speak to the emergency department charge nurse. - My Orders Last 24 Hours: My Active Orders 07/08/18 06:00 CULTURE STREP A CONFIRMATION [RM] Stat STREP SCRN A RAPID W CULT CONF [RM] Stat - Assessment/Plan Last 24 Hours: My Active Orders 07/08/18 06:00 CULTURE STREP A CONFIRMATION [RM] Stat STREP SCRN A RAPID W CULT CONF [RM] Stat
[2018-07-08 06:44] VITALS: BP 146/99
== END 2018-07-08 06:50 | disposition home or self-care (01) ==
LOC: MW.ED 05:46
DX: O99.511 Diseases of the respiratory system complicating pregnancy, first trimester (principal); J32.9 Chronic sinusitis, unspecified; O99.89 Other specified diseases and conditions complicating pregnancy, childbirth and the puerperium; R30.0 Dysuria; Z3A.01 Less than 8 weeks gestation of pregnancy
CPT/HCPCS: 81001; 81025; 87081; 87804; 87880-QW; 99283

== ENCOUNTER 2020-11-22 06:30 | Day surgery (SDC) | payer SELFPAY ==
[~2020-11-22 06:30] MED LIST changes: -Citric Acid/Sodium Citrate Solution 30 ML Cup PO SCH; +Lactated Ringers 1,000 ML IV SCH; -Sodium Chloride 0.9% 10 ML Syringe FLUSH PRN; -Sodium Chloride 0.9% 2.5 ML Syringe FLUSH PRN
[2020-11-22] MEDS ORDERED: Midazolam 1 MG/ML 2 ML SDV ONE (07:03)
[2020-11-22] MEDS ORDERED: fentaNYL 100 MCG/2 ML SDV ONE ×2 (07:03→09:38)
[2020-11-22] MEDS ORDERED: Lidocaine 2% 5 ML SDV ONE (07:03)
[2020-11-22] MEDS ORDERED: Dexamethasone 4 MG/ML 5 ML MDV ONE (07:04)
[2020-11-22] MEDS ORDERED: Propofol 200 MG/20 ML SDV ONE (07:04)
[2020-11-22] MEDS ORDERED: Ondansetron 4 MG/2 ML SDV ONE (07:05)
--- NOTE | 2020-11-22 07:42 | PCM.PREANE ---
Preanesthetic Assessment - Anesthesia/Transfusion/Family Hx Anesthesia History: Prior Anesthesia Without Reaction Family History of Anesthesia Reaction: No Transfusion History: Unknown Intubation History: Unknown - Physical Assessment NPO Status Date: 11/21/20 NPO Status Time: 23:00 Vital Signs: Last Vital Signs Temp 97.5 F 11/22/20 07:11 Pulse 76 11/22/20 07:11 Resp 16 11/22/20 07:11 BP 170/95 H 11/22/20 07:21 Pulse Ox 100 11/22/20 07:11 Height: 5 ft 4 in Weight: 67.585 kg ASA Class: 2 Airway Class: Mallampati = 3 Thyro-Mental Finger Breadths: 2 Mouth Opening Finger Breadths: 3 Cardiovascular: Murmurs - Lab Values: Laboratory Last Values WBC 5.01 K/uL (4.0-11.0) 11/22/20 07:00 RBC 4.05 M/uL (4.30-5.90) L 11/22/20 07:00 Hgb 11.1 g/dL (12.0-16.0) L 11/22/20 07:00 Hct 32.7 % (36.0-46.0) L 11/22/20 07:00 MCV 80.7 fL (80.0-98.0) 11/22/20 07:00 MCH 27.4 pg (27.0-32.0) 11/22/20 07:00 MCHC 33.9 g/dL (31.0-37.0) 11/22/20 07:00 RDW Std Deviation 48.2 fl (28.0-62.0) 11/22/20 07:00 RDW Coeff of [place] 16 % (11.0-15.0) H 11/22/20 07:00 Plt Count 285 K/uL (150-400) 11/22/20 07:00 MPV 10.20 fL (7.40-12.00) 11/22/20 07:00 Nucleated RBC % 0.0 /100WBC 11/22/20 07:00 Nucleated RBCs # 0 K/uL 11/22/20 07:00 SARS-CoV-2 RNA (JUSTIN) NEGATIVE (NEGATIVE) 11/21/20 10:50 - Allergies Allergies/Adverse Reactions: Allergies Allergy/AdvReac Type Severity Reaction Status Date / Time No Known Allergies Allergy Verified 11/22/20 07:07 - Anesthesia Plan Free Text/Narrative:: GA Pre-Op Medication Ordered: None - Acknowledgements Anesthesia Type Planned: General Anesthesia Pt an Appropriate Candidate for the Planned Anesthesia: Yes Alternatives and Risks of Anesthesia Discussed w Pt/Guardian: Yes Pt/Guardian Understands and Agrees with Anesthesia Plan: Yes PreAnesthesia Questionnaire - Past Health History Medical/Surgical History: Denies Medical/Surgical History HEENT History: Reports: None Cardiovascular History: Reports: None, Hypertension Respiratory History: Reports: None Gastrointestinal History: Reports: None Genitourinary History: Reports: None 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: , 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 Musculoskeletal History: Reports: None Neurological History: Reports: None Psychiatric History: Reports: None Endocrine/Metabolic History: Reports: None Hematologic History: Reports: Blood Transfusion(s) Other Hematologic History: states she had blood transfusion with first c/section Immunologic History: Reports: None Oncologic (Cancer) History: Reports: None Dermatologic History: Reports: None - Infectious Disease History Infectious Disease History: Reports: None - Past Surgical History Head Surgeries/Procedures: Reports: None HEENT Surgical History: Reports: None Cardiovascular Surgical History: Reports: None Respiratory Surgical History: Reports: None GI Surgical History: Reports: Appendectomy Female Surgical History: Reports: Section Neurological Surgical History: Reports: None Musculoskeletal Surgical History: Reports: None Oncologic Surgical History: Reports: None Dermatological Surgical History: Reports: None - SUBSTANCE USE Tobacco Use Status *Q: Never Tobacco User Recreational Drug Use History: No - HOME MEDS Home Medications: Home Meds hydroCHLOROthiazide [Hydrochlorothiazide] 12.5 mg PO DAILY 11/17/20 [History] - CURRENT (IN HOUSE) MEDS Current Meds: Current Medications Lactated Ringer's (Ringers, Lactated) 1,000 mls @ 125 mls/hr IV ASDIRECTED MUMTAZ Last Admin: 11/22/20 07:07 Dose: 125 mls/hr Documented by: Discontinued Medications Dexamethasone (Dexamethasone 4 Mg/Ml 5 Ml Mdv) Confirm Administered Dose 20 mg .ROUTE .STK-MED ONE Stop: 11/22/20 07:05 Fentanyl (Fentanyl 100 Mcg/2 Ml Sdv) Confirm Administered Dose 100 mcg .ROUTE .STK-MED ONE Stop: 11/22/20 07:04 Lidocaine (Lidocaine 2% 5 Ml Sdv) Confirm Administered Dose 5 ml .ROUTE .STK-MED ONE Stop: 11/22/20 07:04 Midazolam HCl (Midazolam 1 Mg/Ml 2 Ml Sdv) Confirm Administered Dose 2 mg .ROUTE .STK-MED ONE Stop: 11/22/20 07:04 Ondansetron HCl (Ondansetron 4 Mg/2 Ml Sdv) Confirm Administered Dose 4 mg .ROUTE .STK-MED ONE Stop: 11/22/20 07:06 Propofol (Propofol 200 Mg/20 Ml Sdv) Confirm Administered Dose 200 mg .ROUTE .STK-MED ONE Stop: 11/22/20 07:05
[2020-11-22] MEDS ORDERED: Naloxone 0.4 MG/ML Syringe IVPUSH PRN (07:51)
[2020-11-22] MEDS ORDERED: Ondansetron 4 MG/2 ML SDV IVPUSH PRN (07:51)
[2020-11-22] MEDS ORDERED: Albuterol 0.083% 2.5 MG/3 ML Neb Soln NEB PRN (07:51)
[2020-11-22] MEDS ORDERED: HYDROmorphone 2 MG/ML Syringe IVPUSH PRN (07:51)
[2020-11-22] MEDS ORDERED: Morphine 2 MG/ML SYRINGE IVPUSH PRN (07:51)
[2020-11-22] MEDS ORDERED: Metoclopramide 10 MG/2 ML SDV IVPUSH PRN (07:51)
[2020-11-22] MEDS ORDERED: fentaNYL 100 MCG/2 ML SDV IVPUSH PRN (07:51)
[2020-11-22] MEDS ORDERED: Ketorolac 30 MG/ML SDV ONE (08:41)
--- NOTE | 2020-11-22 10:09 | PCM.OPNOTE ---
- General Post-Op/Procedure Note Date of Surgery/Procedure: 11/22/20 Operative Procedure(s): Operative hysteroscopy with myomectomy and dilation and curettage Findings: Retroverted uterus sounded to 10cm. Large submucosal fibroid inferior to left ostia. Pre Op Diagnosis: 1. Uterine leiomyoma. 2. Excessive and frequent menstruation with regular cycle. 3. Recurrent loss Post-Op Diagnosis: 1. Submucosal uterine leiomyoma. 2. Excessive and frequent menstruation with regular cycle. 3. Recurrent loss Other Anesthesia Type: LMA Primary Surgeon: Georgina Coy Stockroom Worker: Frannie Ramirez Pathology: Submucosal fibroid Endometrial curettings Fluid Replacement, Intraop: 900 (crystalloid) Output, Urine Amount: 50 (straight cath prior to procedure) EBL in mLs: 10 Complications: None known Condition: Good Free Text/Narrative:: Fluid deficit: 1800cc Dictation #[id number]
--- NOTE | 2020-11-22 10:28 | PCM.POSTAN ---
POST ANESTHESIA ASSESSMENT - MENTAL STATUS Mental Status: Alert, Oriented - VITAL SIGNS Vital Signs: Last Vital Signs Temp 97.5 F 11/22/20 07:11 Pulse 76 11/22/20 07:11 Resp 16 11/22/20 07:11 BP 170/95 H 11/22/20 07:21 Pulse Ox 100 11/22/20 07:11 - RESPIRATORY Respiratory Status: Respiratory Rate WNL, Airway Patent, O2 Saturation Stable - CARDIOVASCULAR CV Status: Pulse Rate WNL, Blood Pressure Stable - GASTROINTESTINAL GI Status: No Symptoms - POST OP HYDRATION Hydration Status: Adequate & Stable
--- NOTE | 2020-11-22 10:29 | PCM48HPAN ---
Post Anesthesia Note - EVALUATION WITHIN 48HRS OF ANESTHETIC Vital Signs in Normal Range: Yes Patient Participated in Evaluation: Yes Respiratory Function Stable: Yes Airway Patent: Yes Cardiovascular Function Stable: Yes Hydration Status Stable: Yes Pain Control Satisfactory: Yes Nausea and Vomiting Control Satisfactory: Yes Mental Status Recovered: Yes Vital Signs: Last Vital Signs Temp 97.5 F 11/22/20 07:11 Pulse 76 11/22/20 07:11 Resp 16 11/22/20 07:11 BP 170/95 H 11/22/20 07:21 Pulse Ox 100 11/22/20 07:11
[2020-11-22] MEDS ORDERED: Metoprolol Tartrate 5 MG/5 ML SDV ONE (11:06)
[2020-11-22] MEDS ORDERED: METOPROLOL TARTRATE IVPUSH ONE (12:13)
--- NOTE | 2020-11-22 12:47 | OR ---
SURGEON: GEORGINA NASSAR MD DATE OF PROCEDURE: 11/22/2020 PROCEDURE: Operative hysteroscopy with myomectomy and dilation and curettage. PREOPERATIVE DIAGNOSES: 1. Uterine leiomyoma. 2. Excessive and infrequent menstruation with regular cycle. 3. Recurrent loss. POSTOPERATIVE DIAGNOSES: 1. Submucosal uterine leiomyoma. 2. Excessive and frequent menstruation with regular cycle. 3. Recurrent loss. PRIMARY SURGEON: Georgina Nassar M.D. DAMAGE INSIDE ADJUSTER: Frannie Ramirez M.D. ANESTHESIA: LMA. COMPLICATIONS: None known. ESTIMATED BLOOD LOSS: 10 mL. IV FLUID: 900 mL of crystalloid. FLUID DEFICIT: 800 mL. URINE OUTPUT: 50 mL straight cath prior to the procedure. FINDINGS: Retroverted uterus sounded to 10 cm. Large submucosal fibroid inferior to the left ostia. INDICATIONS: The patient is a 40-year-old 5, para 2 female who presented to the clinic with a history of recurrent loss including three first- trimester spontaneous abortions and heavy frequent menstruation. The patient desires fertility and conception at this time. A saline sonohysterogram was performed in the office and an approximately 2.4 cm submucosal uterine fibroid was noted. Endometrial biopsy was performed and was negative. The patient desires to proceed with myomectomy locally at this time. PATHOLOGY: 1. Submucosal fibroids. 2. Endometrial curettings. DESCRIPTION OF PROCEDURE: The patient was taken to the operating room where LMA was introduced. She was then prepped and draped in the dorsal lithotomy position. Bimanual exam was performed and bladder was drained. A time-out was then held. Open-sided Graves speculum was then inserted into the vagina to visualize the cervix. The cervix was grasped at 12 o'clock with an Allis clamp. The uterus was then sounded to 10 cm and serially dilated to 10 Hegar. The hysteroscope with MyoSure capabilities was then inserted into the cervix and the uterus. Findings noted as above. Right and left ostia were then visualized. The MyoSure was then introduced and used to resect a portion of the submucosal fibroid due to large size of the fibroid. The hysteroscope with MyoSure was then removed and the resectoscope was then introduced without difficulty. The resectoscope was then used to continue with a myomectomy, removal of tissue. Several strokes were used under direct visualization. The MyoSure was then introduced once again and resection of the fibroid continued. Due to poor visualization and stalk remaining of the fibroid, the rectoscope was then introduced for 2nd time to remove the serosal portion of the fibroid. The MyoSure was then introduced one last time and removed the base of the fibroid, which was then noted to be flushed with the endometrial sidewall. The hysteroscope was then removed along with the MyoSure and a sharp curettage was then performed with a medium Srinivasan curette. Specimen sent to the pathology department. Bleeding was minimal. Allis clamp removed. Hemostasis noted. The patient tolerated the procedure well. Sponge, lap, and needle counts were correct x2. The patient was taken to recovery in stable condition. KAYA AMES /[id number]
[2020-11-22 12:53] VITALS: BP 152/104; PULSE 77
== END 2020-11-22 12:35 | disposition home or self-care (01) ==
LOC: MW.SDS 06:30
PROVIDERS: ATTEND Obstetrics & Gynecology
DX: D25.0 Submucous leiomyoma of uterus (principal); N93.9 Abnormal uterine and vaginal bleeding, unspecified; N92.0 Excessive and frequent menstruation with regular cycle; N96 Recurrent pregnancy loss; Z01.812 Encounter for preprocedural laboratory examination; Z20.822 Contact with and (suspected) exposure to COVID-19
CPT/HCPCS: 36415; 58120; 58561; 84703; 85027; 87635; 88305; J0131; J1100; J1885; J2250; J2704; J3010; J3490; J7120; 00952; J2405; U0002

== ENCOUNTER 2022-07-15 12:08 | Emergency (ER) | payer BC ==
[2022-07-15] MEDS ORDERED: Acetaminophen 325 MG Tab PO ONE (13:00)
[2022-07-15] MEDS ORDERED: Ibuprofen 400 MG Tab PO ONE (13:00)
[2022-07-15] MEDS ORDERED: Prochlorperazine 10 MG/2 ML SDV IVPUSH ONE (13:47)
[2022-07-15 13:57] LABS: CORONAVIRUS COVID-19 NAA NEGATIVE (NEGATIVE); INFLUENZA A NAA NEGATIVE (NEGATIVE); INFLUENZA B NAA NEGATIVE (NEGATIVE); RESPIRATORY SYNCYTIAL VIR NAA NEGATIVE (NEGATIVE)
[2022-07-15] MEDS ORDERED: Lactated Ringers 1,000 ML IV SCH (14:00)
[2022-07-15] MEDS ORDERED: diphenhydrAMINE 50 MG/ML SDV IVPUSH ONE (14:21)
[2022-07-15] MEDS ORDERED: Dexamethasone 10 MG/ML SDV PO ONE (14:47)
[2022-07-15 15:32] LABS: CARBON DIOXIDE,CO2 26.3 mmol/L (21.0-32.0); POTASSIUM,K 3.3 mmol/L (3.5-5.1)
[2022-07-15 17:15] VITALS: BP 147/97; PULSE 93
== END 2022-07-15 17:13 | disposition home or self-care (01) ==
LOC: MW.ED 12:08
DX: R51.9 Headache, unspecified (principal); I10 Essential (primary) hypertension; Z20.822 Contact with and (suspected) exposure to COVID-19
CPT/HCPCS: 0241U; 36415; 80053; 82550; 84703; 85025; 96361; 96374; 96375; 99284; 99284-25; A9270-GY; J0780; J1200; J7120; J8540

== ENCOUNTER 2023-05-07 10:19 | Emergency (ER) | payer BC ==
[2023-05-07] MEDS ORDERED: Acetaminophen 500 MG Tab PO ONE (10:41)
[2023-05-07 11:27] LABS: CORONAVIRUS COVID-19 NAA NEGATIVE (NEGATIVE); INFLUENZA A NAA NEGATIVE (NEGATIVE); INFLUENZA B NAA POSITIVE (NEGATIVE)
[2023-05-07 11:46] VITALS: BP 157/94; PULSE 102
== END 2023-05-07 12:10 | disposition home or self-care (01) ==
LOC: MW.ED 10:19
DX: O98.519 Other viral diseases complicating pregnancy, unspecified trimester (principal); O10.919 Unspecified pre-existing hypertension complicating pregnancy, unspecified trimester; Z3A.00 Weeks of gestation of pregnancy not specified; Z20.822 Contact with and (suspected) exposure to COVID-19
CPT/HCPCS: 0240U; 81025; 99284; A9270

== ENCOUNTER 2023-11-22 17:35 | Observation (INO) | payer BC ==
[2023-11-22] MEDS ORDERED: Labetalol 100 MG/20 ML MDV IVPUSH PRN (19:07)
[2023-11-22] MEDS ORDERED: Magnesium Sulfate/Water 4 GM in Premix Bag 1 BAG IV ONE (19:07)
[2023-11-22] MEDS ORDERED: Calcium Gluconate 10% 1 GM/10 ML SDV IV PRN (19:07)
[2023-11-22] MEDS ORDERED: Sodium Chloride 0.9% 20 ML SDV IV PRN (19:07)
[2023-11-22] MEDS ORDERED: Sodium Chloride 0.9% 2.5 ML Syringe FLUSH PRN (19:07)
[2023-11-22] MEDS ORDERED: Sodium Chloride 0.9% 10 ML Syringe FLUSH PRN (19:07)
[2023-11-22] MEDS: NIFEdipine 10 MG Cap PO PRN (19:22)
[2023-11-22] MEDS: NIFEdipine 30 MG Tab.ER PO ONE (21:25)
[2023-11-23 00:56] LABS: APPEARANCE,URINE CLEAR; BILIRUBIN,URINE NEGATIVE (NEGATIVE); COLOR,URINE YELLOW; GLUCOSE,URINE NEGATIVE (NEGATIVE); KETONES,URINE 15 mg/dL (NEGATIVE); LEUKOCYTE ESTERASE,URINE NEGATIVE (NEGATIVE); NITRITE,URINE NEGATIVE (NEGATIVE); OCCULT BLOOD,URINE NEGATIVE (NEGATIVE); PROTEIN,URINE NEGATIVE (NEGATIVE); UROBILINOGEN,URINE 0.2 EU/dL (<2.0)
[2023-11-23] MEDS: Labetalol 100 MG Tab PO STA (00:56)
[2023-11-23] MEDS: Betamethasone Acetate/Betamethasone Sod Phosphate 6 MG/1 ML MDV IM ONE (00:57)
[2023-11-23 07:47] LABS: HEMATOCRIT 30.7 % (37.0-47.0); HEMOGLOBIN 10.5 g/dL (12.0-16.0); MEAN CORPUSCULAR HEMOGLOBIN 29.2 pg (28.0-32.0); MEAN CORPUSCULAR HGB CONC 34.2 g/dL (32.0-36.0); MEAN CORPUSCULAR VOLUME 85.3 fL (83.0-99.0); MEAN PLATELET VOLUME 9.8 fL (9.4-12.3); NRBC ABSOLUTE 0.02 K/uL (0.00-0.02); NRBC PERCENT 0.2 /100WBC (0.0-0.2); PLATELET COUNT,PLT 270 K/uL (150-400); WHITE BLOOD CELL COUNT,WBC 8.26 K/uL (3.9-11.3)
[2023-11-23] MEDS: NIFEdipine 30 MG Tab.ER PO SCH (08:40)
[2023-11-23] MEDS: Labetalol 100 MG Tab PO ONE (08:40)
[2023-11-23] MEDS ORDERED: NIFEdipine 30 MG Tab.ER PO SCH (09:00)
[2023-11-23] MEDS ORDERED: Labetalol 100 MG Tab PO ONE (10:29)
[2023-11-23] MEDS: Lactated Ringers 1,000 ML IV SCH (16:29)
[2023-11-23] MEDS: Magnesium Sulfate/Water 4 GM in Premix Bag 1 BAG IV ONE (16:29)
[2023-11-23] MEDS: Magnesium Sulfate/Water 20 GM/500 ML BAG IV SCH (16:30)
[2023-11-23] MEDS: Labetalol 100 MG Tab PO SCH (22:07)
[2023-11-24] MEDS: Betamethasone Acetate/Betamethasone Sod Phosphate 6 MG/1 ML MDV IM STA (01:00)
[2023-11-24] MEDS: Iron Polysaccharides Complex 150 MG Cap PO SCH (08:49)
[2023-11-24] MEDS: Aspirin 81 MG Tab.Chew PO SCH (08:49)
[2023-11-24 08:50] VITALS: BP 142/70; PULSE 117
== END 2023-11-24 12:48 | disposition home or self-care (01) ==
LOC: MW.OBCHECK 17:35 → MW.OB 17:35 → MW.OBCHECK 11-23 01:57 → OBSVTOIN 11-23 06:39 → INTOOBSV 11-23 06:39
PROVIDERS: ADMIT Obstetrics & Gynecology; ATTEND Obstetrics & Gynecology
DX: O11.3 Pre-existing hypertension with pre-eclampsia, third trimester (principal); O24.419 Gestational diabetes mellitus in pregnancy, unspecified control; O99.013 Anemia complicating pregnancy, third trimester; Z3A.32 32 weeks gestation of pregnancy; O36.0130 Maternal care for anti-D [Rh] antibodies, third trimester, not applicable or unspecified
CPT/HCPCS: 36415; 51702; 81003; 83735; 84156; 85027; 86850; 86900; 86901; 96365; 96366; A9270; G0378; J0702; J3475; J7120; 99222; 99238

== ENCOUNTER 2024-01-03 12:09 | Inpatient (IN) | payer BC ==
[2024-01-03] MEDS: Labetalol 100 MG/20 ML MDV IVPUSH ONE (13:29)
[2024-01-03 13:42] LABS: APPEARANCE,URINE CLEAR; BILIRUBIN,URINE NEGATIVE (NEGATIVE); COLOR,URINE YELLOW; GLUCOSE,URINE NEGATIVE (NEGATIVE); KETONES,URINE NEGATIVE (NEGATIVE); LEUKOCYTE ESTERASE,URINE SMALL (NEGATIVE); NITRITE,URINE NEGATIVE (NEGATIVE); OCCULT BLOOD,URINE MODERATE (NEGATIVE); PROTEIN,URINE NEGATIVE (NEGATIVE); UROBILINOGEN,URINE 0.2 EU/dL (<2.0)
[2024-01-03 13:43] LABS: BASOPHILS ABSOLUTE AUTO 0.03 K/uL (0.00-0.20); BASOPHILS PERCENT AUTO 0.4 % (0.0-1.0); EOSINOPHILS ABSOLUTE AUTO 0.26 K/uL (0.00-0.45); EOSINOPHILS PERCENT AUTO 3.1 % (0.0-6.0); HEMATOCRIT 30.2 % (37.0-47.0); HEMOGLOBIN 10.3 g/dL (12.0-16.0); IMMATURE GRAN ABSOLUTE AUTO 0.08 K/uL (0.00-0.05); LYMPHOCYTES ABSOLUTE AUTO 2.06 K/uL (1.00-4.80); LYMPHOCYTES PERCENT AUTO 24.5 % (24.0-44.0); MEAN CORPUSCULAR HEMOGLOBIN 28.9 pg (28.0-32.0); MEAN CORPUSCULAR HGB CONC 34.1 g/dL (32.0-36.0); MEAN CORPUSCULAR VOLUME 84.6 fL (83.0-99.0); MEAN PLATELET VOLUME 9.7 fL (9.4-12.3); MONOCYTES ABSOLUTE AUTO 0.59 K/uL (0.00-0.80); NEUTROPHILS ABSOLUTE AUTO 5.38 K/uL (1.80-7.70); PLATELET COUNT,PLT 361 K/uL (150-400); RED BLOOD CELL COUNT 3.57 M/uL (4.10-5.30)
[2024-01-03 13:50] LABS: INR 0.98 (0.86-1.11)
[2024-01-03 13:51] LABS: CREATININE 0.8 mg/dL (0.6-1.0); EST CRCL DRUG DOSING (CG) 88.18 mL/min; POTASSIUM,K 3.5 mmol/L (3.5-5.1); PROTEIN TOTAL,TP 7.3 g/dL (6.4-8.2)
[2024-01-03 13:52] LABS: A/G RATIO 0.7 (0.9-1.6); BILIRUBIN TOTAL 0.4 mg/dL (0.2-1.0)
[2024-01-03 13:53] LABS: BACTERIA,URINE FEW (NEGATIVE); EPITHELIAL CELLS,URINE FEW (NONE-FEW)
[2024-01-03] MEDS: hydrALAZINE 20 MG/ML SDV IVPUSH ONE (15:22)
[2024-01-03] MEDS: Sodium Chloride 0.9% 2.5 ML Syringe FLUSH PRN (15:23)
[2024-01-03] MEDS: Sodium Chloride 0.9% 10 ML Syringe FLUSH PRN (15:23)
[2024-01-03] MEDS: Magnesium Sulfate/Water 4 GM/100 ML BAG IV ONE (15:23)
[2024-01-03] MEDS: Lactated Ringers 1,000 ML IV SCH (16:00)
[2024-01-03] MEDS: Magnesium Sulfate/Water 20 GM/500 ML BAG IV SCH (16:00)
[2024-01-03] MEDS ORDERED: Sodium Chloride 0.9% 20 ML SDV IV PRN (16:13)
[2024-01-03] MEDS ORDERED: Calcium Gluconate 10% 1 GM/10 ML SDV IV PRN (16:13)
[2024-01-03] MEDS ORDERED: Sodium Chloride 0.9% 10 ML Syringe FLUSH PRN (16:13)
[2024-01-03] MEDS ORDERED: Sodium Chloride 0.9% 2.5 ML Syringe FLUSH PRN (16:13)
[2024-01-03] MEDS: hydrALAZINE 20 MG/ML SDV IVPUSH STA (16:43)
[2024-01-03] MEDS: NIFEdipine 10 MG Cap PO PRN (17:41)
[2024-01-03] MEDS: Ibuprofen 800 MG Tab PO PRN (22:32)
[2024-01-04] MEDS: hydrALAZINE 20 MG/ML SDV ONE (11:39)
[2024-01-04] MEDS: Magnesium Sulfate/Water 50 ML ONE (11:39)
[2024-01-04] MEDS: NIFEdipine 10 MG Cap ONE (11:40)
[2024-01-04] MEDS: Labetalol 100 MG Tab PO SCH (13:24)
[2024-01-05 09:06] VITALS: PULSE 83
[2024-01-05 09:18] VITALS: BP 156/94
== END 2024-01-05 11:45 | disposition home or self-care (01) | DRG 561 ==
LOC: MW.ED 12:09 → MW.OB 15:18
PROVIDERS: ADMIT Obstetrics & Gynecology; ATTEND Obstetrics & Gynecology
DX: O10.93 Unspecified pre-existing hypertension complicating the puerperium (principal); O99.03 Anemia complicating the puerperium; D50.9 Iron deficiency anemia, unspecified; Z79.82 Long term (current) use of aspirin; Z79.899 Other long term (current) drug therapy
CPT/HCPCS: 36415; 51702; 80053; 81001; 83690; 83735; 85025; 85610; 86900; 86901; 96374; 99284-25; 99285; A9270-GY; J0360; J1921; J3475; J3490; J7120

== ENCOUNTER 2024-06-10 19:12 | Emergency (ER) | payer SELFPAY ==
[2024-06-10] MEDS: Ibuprofen 600 MG Tab PO ONE (23:57)
[2024-06-10] MEDS: Acetaminophen 500 MG Tab PO ONE (23:57)
[2024-06-10] MEDS: Ondansetron 4 MG Tab.DIS PO ONE (23:58)
[2024-06-11 00:16] VITALS: BP 171/96; PULSE 98
== END 2024-06-11 00:02 | disposition home or self-care (01) ==
LOC: MW.ED 19:12
DX: J10.1 Influenza due to other identified influenza virus with other respiratory manifestations (principal); I10 Essential (primary) hypertension; Z90.49 Acquired absence of other specified parts of digestive tract; Z75.8 Other problems related to medical facilities and other health care
CPT/HCPCS: 87428; 99284; A9270; 99283